=== PATIENT | female | born 1960 ===

== ENCOUNTER → 2018-12-18 10:39 | Outpatient (CLI) | payer OTHER, SELFPAY ==
[2018-12-18 12:25] LABS: T4 Total Thyroxine 6.29 ug/dL (5.5-11.0)
[2018-12-18 12:39] LABS: Thyroid Stimulating Hormone 1.65 uIU/mL (0.47-4.68)
[2018-12-20 20:18] LABS: Triiodothyronine T3 Total 115 ng/dL (76-181)
== END ==
DX: E66.9 Obesity, unspecified (principal)
CPT/HCPCS: 36415; 84436; 84443; 84480

== ENCOUNTER → 2020-07-08 09:57 | Outpatient (CLI) | payer OTHER, SELFPAY ==
[2020-07-08 11:57] LABS: Cholesterol 199 mg/dL (140-199); HDL Cholesterol 77 mg/dL (40-60); LDL Cholesterol Calculated 103 mg/dL (<100); Triglycerides 93 mg/dL (35-150)
== END ==
PROVIDERS: PCP Student in an Organized Health Care Education/Training Program; Referring Provider Student in an Organized Health Care Education/Training Program; Visit Provider Student in an Organized Health Care Education/Training Program
DX: Z13.220 Encounter for screening for lipoid disorders (principal)
CPT/HCPCS: 36415; 80061

== ENCOUNTER → 2021-12-08 14:24 | Outpatient (CLI) | payer OTHER, SELFPAY ==
[2021-12-08 14:56] LABS: COVID19 -Nasal RAPID Negative (Negative)
== END ==
PROVIDERS: PCP Student in an Organized Health Care Education/Training Program; Visit Provider Family Medicine Sleep Medicine
DX: Z20.822 Contact with and (suspected) exposure to COVID-19 (principal)
CPT/HCPCS: 87635; C9803

== ENCOUNTER 2021-12-12 15:52 | Observation (INO) | payer OTHER, SELFPAY ==
[2021-11-29 08:49] VITALS: BMI 36.5
[2021-12-11] VITALS (13 sets, daily range): BP systolic 112–158; BP diastolic 61–93; PULSE 50–82; RESP 10–16; TEMP 36–36.9; O2SAT 94–100; BMI 36.5
[2021-12-11] MEDS: LACTATED RINGERS 1,000 ML 42 ML IV ×2 (13:14→16:01)
--- NOTE | 2021-12-11 13:19 | PM.PREOP ---
Pre-operative Note COVID-19 COVID-19 status: Negative Result date/Date tested (Pos, Neg/Pending): 12/10/21 Criteria for continued procedure: Expected advancement of disease process, Possibility delay results in more complex future surgery or treatment, Increased loss of function, Continuing or worsening of significant or severe pain, Deterioration of the patient's condition or overall health and Delay expected to result in less-positive ultimate med/surg outcome Interval Note History & Physical reviewed/Exam performed by Physician: Yes Changes to H&P: No
[2021-12-11] MEDS: CEFAZOLIN 2 GM/20 ML SYRINGE IV ×2 (14:14→21:42)
--- NOTE | 2021-12-11 14:41 | SUR.OPER ---
Prone on spine table, head in foam head support, padded chest and pelvic supports, gel pad at knees, lower legs supported by pillows; nipples, genitalia and toes free of pressure, arms secured on foam padded arm boards at <90 degrees abduction. Tape over blanket at thigh secured to table. tape from top of buttocks bilateral to base of table to provide traction.
[2021-12-11] MEDS: BUPIVACAINE LIPOSOME 266 MG/20 ML VIAL INJ (15:14)
[2021-12-11] MEDS: BUPIVACAINE 0.25% (PF) 30 ML, EPINEPHrine 0.3 MG INJ (15:14)
[2021-12-11] MEDS: ACETAMINOPHEN IV 1,000 MG/100 ML VIAL 400 MG IV (16:02)
--- NOTE | 2021-12-11 16:53 | P.OP_ITS ---
Operative Date/Time/Diagnoses Date of procedure: 12/11/21 Time of procedure: 13:45 Pre-op diagnosis: 1. L3-4 spinal stenosis with neurogenic claudication 2. L3-4 spondylolisthesis Post-op diagnosis: same Procedure & Clinicians Procedure: 1. L3-4 Postero-lateral and posterior interbody fusion 2. L3-4 interbody cage placement. 3. L3-4 decompressive laminectomy with bilateral facetecomies 4. L3-4 Posterior non-segmental instrumentation 5. [place] of bone marrow from iliac crest 6. Utilization of microsurgical technique and operating microscope Same procedure as scheduled: Yes Indications: Patient has been having chronic back pain and worsening lumbar radiculopathy. Patient failed multiple conservative management with worsening pain weakness and numbness in her lower extremity. Patient has been having difficulty performing activity of daily living. After discussing risks benefits of treatment options, patient elected proceed with surgery. Surgeon: Jacob Montiel Adobe Architect: Aniyah Lea Click Yes if Unassisted: No Anesthesia Type: General Operative Notes Closure Type: primary Specimen(s): none sent Prosthetic devices, grafts, tissues, transplants, or devices: Globus revolve screws, Rise cage Estimated Blood Loss (mL): 50 Blood products transfused: none Procedure in detail: Patient was seen in the preoperative area. Risks and benefits of the surgery was discussed with the patient. Informed consent was obtained from the patient and placed in the chart. Surgical site was marked. Patient was taken to the operative room. General anesthesia was administered. Prophylactic antibiotic was given to the patient less than 30 min before the incision was made. Patient was placed into a prone position on the Carroll table. Patient's back was then prepped and draped in the sterile fashion. Time-out was performed at this time. Using AP and lateral C-arm imaging the interval between L3-4 was identified and marked on patient's back. A 2 inch incision 2 in from midline was made on the left side first. The fascia was incised in line with skin incision. Globus MARS retractors was placed inside the incision and docked onto the L3-4 lamina. Using microsurgical technique and operating microscope, a L3 laminectomy and L3- 4 facetectomy was performed using a Kerrison rongeur. Patient was found to have severe central stenosis along with severe foramen stenosis bilaterally. After the decompression was completed including laminectomy facetectomies, the L3-4 level was found to be grossly unstable and needed a fusion procedure at the same time. The disc space at L3-4 was identified. And a total diskectomy was p erformed at L3-4 level. The endplates were decorticated using a rasp and shaver. The total diskectomy and decortication was performed at L3-4 level in order to to accomplish a L3-4 fusion. The local bone from the laminectomy and facetectomy was saved for local bone grafting. After the total diskectomy and decortication was completed, Trifecta bone graft material was combined with local bone that was harvested earlier. At this time, a separate skin is incision was made over the iliac crest. A Jamshidi needle was inserted into the iliac crest through a separate skin incision. 5 cc of bone marrow aspiration was obtained through the separate skin incision using a Jamshidi needle from the iliac crest. The bone marrow aspiration was combined with local bone and the Trifecta bone grafting material. The bone grafting material was placed into the L3-4 interbody space along with a expandable cage. The cage was expanded to its maximum height using the torque limiting screwdriver. At this time a mirror image incision was made on the right side. The fascia was incised in line with the skin incision. Globus MARS retractor was inserted and docked onto the L3-4 posterolateral gutter. Using the power drill, posterior- lateral decortication was performed at L3-4 level until bleeding cortical bone was identified. The remaining bone grafting material was placed into the L3-4 posterior lateral gutter he order to accomplish posterolateral fusion at the L3- 4 level. Using the double C-arm technique, pedicle screws were placed into the L3 and L4 pedicles bilaterally. This was done by placing the Jamshidi needle into the pedicles, then placing the guidewires over the Jamshidi needle, and finally placing the cannulated screws over the guidewires bilaterally. After the pedicle screws were placed, 2 titanium rods was locked into the heads of the pedicle screws using locking caps and torque limiting screwdriver. After all the hardware was placed, and confirmed with AP and lateral C-arm imaging, the wound was then irrigated with sterile normal saline and packed with Ray-Lucy gauze for 3 min to accomplish hemostasis. After the gauze was removed the deep fascia was closed with #1 Vicryl suture. The subcutaneous layer was closed with 2-0 Vicryl. The skin was closed with skin willi. Patient tolerated the procedure well. There were no complications. Neuro monitoring was performed throughout the entire procedure. Patient neuro monitoring signal was stable throughout entire procedure. Complications: none Post-operative Condition: stable Disposition: PACU Plan for aftercare: Admit to inpatient hospital
--- NOTE | 2021-12-11 16:54 | DI.RAD.S_ITS ---
PROCEDURE: XR LUMBAR SPINE 2-3V INDICATIONS: L3-4 TLIF TECHNIQUE: 3 views of the lumbar spine were acquired. COMPARISON: None. FINDINGS: Bones: Postsurgical changes compatible L3-L4 TLIF. Orthopedic hardware is in expected position. Orthopedic hardware is intact. Soft tissues: Overlying bowel gas pattern is normal. No suspicious soft tissue calcifications. IMPRESSION: Expected postsurgical change for L3-L4 TLIF. Dictated by: Lennie Mckeon MD, PhD on 12/11/2021 at 17:00 Approved by: Lennie Mckeon MD, PhD on 12/11/2021 at 17:00
[2021-12-11] MEDS: fentaNYL 100 MCG/2 ML INJ IV ×2 (17:11→17:19)
[2021-12-11] MEDS: HYDROMORPHONE 2 MG INJ IV ×6 (17:12→17:40)
[2021-12-11] MEDS: OXYCODONE IR 5 MG TABLET PO (17:26)
--- NOTE | 2021-12-11 17:41 | SUR.PHASEI ---
Addendum entered by Lesly Mcwilliams R.N. 12/11/21 18:44: experell band on left wrist of patient on transfer into room 206.Rn made aware. Addendum entered by Lesly Mcwilliams R.N. 12/11/21 18:35: 1815-vss. more awake and comfortable. pain tolerable now. states able to relax now. denied any numb/tingling in feet. pain now relaxed/tolerable in thighs and centralized in surgical area. report to RN on floor By phone. csm ble w/out deficits. strength equal and improved in strength. dressing cdi to back. at bedside. 1824-Meets discharge criteria for transfer. to room via bed with 2 bags of belongings. in good spirits. handoff in room with RN. Original Note: 12/11/21-1712 Patient awakening, moan/crying/tearful over back pain . titrated pain medication and monitoring effect. vss. states back pain radiating down legs and behind knees. 1735-Rates pain now at 8/10 and localized now to lumbar back. vss. looks peaceful. resting with eyes closed. 1745-states pain now down in upper legs bilaterally and states improved some more.
[2021-12-11] MEDS: SODIUM CHLORIDE 0.9% 1,000 ML 100 ML IV (18:45)
[2021-12-11] MEDS: HYDROMORPHONE 0.5 MG INJ IV ×2 (18:45→21:40)
--- NOTE | 2021-12-11 19:36 | PC.NURSE ---
Patient received from PACU to room 205 approx. 1830, and settled by float nurse Tami. MILLIGAN. Dressing to back CDI. Moving all extremities. MOnitor for void post surgery. Call light within reach.
[2021-12-11] MEDS: SENNOSIDES 8.6 MG TABLET 17.2 MG PO (20:30)
[2021-12-11] MEDS: DOCUSATE 100 MG CAPSULE PO (20:30)
[2021-12-11] MEDS: OXYCODONE IR 5 MG TABLET 10 MG PO (22:17)
--- NOTE | 2021-12-11 22:41 | PC.NURSE ---
Patient is alert and oriented. Breath sounds CTA with RA sat of 98%. HRR. Denies nausea. BT hypoactive and denies flatus as yet. Assisted to reposition in bed and ice pack placed earlier for pain but pain did increase to 8/10 and was medicated with Dilaudid and now with oxycodone for better pain management. Up to BSC with 2 assists and did well with log rolling and reminders not to twise or bed. Dressing to back with small amount red drainage at right lower corner. CMS is intact. Wearing bilateral foot SCD's. Fall risk score is high and bed alarm is activated.
[2021-12-12 00:35] VITALS: BP 119/72; PULSE 67; RESP 16; TEMP 36.7; O2SAT 99
[2021-12-12] MEDS: OXYCODONE IR 5 MG TABLET 10 MG PO ×5 (01:21→18:59)
[2021-12-12] MEDS: hydrOXYzine pamoate 25 MG CAPSULE PO ×3 (03:33→15:37)
[2021-12-12] MEDS: ACETAMINOPHEN 325 MG TABLET 650 MG PO (03:33)
[2021-12-12 03:42] VITALS: BP 123/58; PULSE 55; RESP 16; TEMP 37.2; O2SAT 96
[2021-12-12] MEDS: HYDROMORPHONE 0.5 MG INJ IV ×3 (04:26→20:13)
[2021-12-12] MEDS: SODIUM CHLORIDE 0.9% 1,000 ML 100 ML IV (04:30)
[2021-12-12] MEDS: CEFAZOLIN 2 GM/20 ML SYRINGE IV (06:10)
--- NOTE | 2021-12-12 07:34 | P.PN_ITS ---
Subjective Subjective Date Patient Seen: 12/12/21 Time Patient Seen: 07:35 Interval history: Pain is moderate to severe. Denies fever or chills. No nausea or vomiting. Exam Vital Signs (past 8 hours): - 12/12/21 00:35 12/12/21 03:42 Temperature 98.0 F 98.9 F Pulse Rate 67 55 L Respiratory Rate 16 16 Blood Pressure 119/72 123/58 L Pulse Oximetry 99 96 Oxygen Delivery Method Room Air Oxygen Flow Rate 0 Narrative Exam Narrative: 61-year-old female resting comfortably in bed in no apparent distress. Dressing is Clean, dry, intact.. Motor functions intact bilateral lower extremities. Sensation grossly intact to light touch left lower extremity. Sensation diminished right lower extremity to light touch which was present prior to surgery. Const General: cooperative Nutritional Appearance: average body habitus Orientation: alert [facility] Medical History Carpal tunnel syndrome (~2004) Easy bruisability Osteoarthritis Seasonal allergies Surgical History Anesthesia Carpal tunnel syndrome on right (~08/2015) History of colonoscopy History of hip replacement (~08/2015) History of tubal ligation (~02/1989) Hx of arthroscopy of right knee (09/2019) Plantar fasciitis Family History Grandmother Cancer Hypertension Social History household members: spouse Smoking Status: Never smoker second hand exposure: No alcohol intake: current substance use type: does not use Assessment & Plan Post-op Postoperative Procedures: Procedures Operation Date: 12/11/21 14:15 Actual Procedure Side Surgeon p L3-4 TLIF Jacob Montiel MD Postoperative day: 1 Postoperative status: marginal pain control Postoperative status narrative: Stable status post L3 through L4 posterior lateral and posterior interbody fusion Postoperative plan narrative: Mobilize with physical therapy, limit bending, twisting, lifting Multimodal pain management Discharge 1-2 days Quality VTE Deep Vein Thrombosis/Pulmonary Embolism Present on Admission: No
[2021-12-12 08:37] VITALS: BP 102/49; PULSE 54; RESP 16; TEMP 36.6; O2SAT 96
[2021-12-12] MEDS: DOCUSATE 100 MG CAPSULE PO ×2 (09:20→20:08)
--- NOTE | 2021-12-12 09:30 | OT.IP.EVAL ---
Current Diagnoses Spondylolisthesis, lumbar region (12/11/21) Spinal stenosis, lumbar region with neurogenic claudication (12/11/21) Surgery Performed Operation Date: 12/11/21 14:15 Actual Procedures p L3-4 TLIF - Jacob Montiel MD Past Medical History (Last Reviewed 12/12/21 @ 07:36 by Mayo Owens PA-C) Carpal tunnel syndrome (~2004) Easy bruisability History of colonoscopy History of hip replacement (~08/2015) History of tubal ligation (~02/1989) Hx of arthroscopy of right knee (09/2019) Osteoarthritis Seasonal allergies Surgical History (Last Reviewed 12/12/21 @ 07:36 by Mayo Owens PA-C) Anesthesia Carpal tunnel syndrome on right (~08/2015) History of colonoscopy History of hip replacement (~08/2015) History of tubal ligation (~02/1989) Hx of arthroscopy of right knee (09/2019) Plantar fasciitis Occupational Therapy Inpatient Evaluation/Re-Eval M1 PT/OT-IP Prior Functional Status Start: 12/12/21 11:52 Freq: NEEDED Status: Active Protocol: Document 12/12/21 09:30 [facility] (Rec: 12/12/21 12:09 [facility] [id number]) Medical Review Prior Functional Status Medical History Reviewed Yes Communication Independent Mobility and Gait Per pt, she did not use a device to walk with prior. Activities of Daily Living and IADL's Pt states needing increased time to do her ADl and IADl needs. Social History Household Members spouse Living Arrangements House Number of Floors (Floors) One Floor Number of Stairs To Enter/Railing? 4 steps with left rail going into the house. Home Environment Standard Height Toilet,Walk in Shower Additional Social History Comment Pt's will be at home to assist with her needs. M2 OT-IP Current Condition Start: 12/12/21 11:52 Freq: Status: Active Protocol: Document 12/12/21 09:30 [facility] (Rec: 12/12/21 12:09 [facility] [id number]) Occupational Therapy Current Condition Current Condition Evaluation Date 12/12/21 Treatment Diagnosis S/p L3-4 TLIF Diagnosis Onset Date 12/11/21 Post Operative Precautions Lumbar Precautions Log Roll,No Twisting,Limit Bending,Lifting Restriction of 10 lbs,Gait Belt above Incisional Area M3 OT- IP Subjective and Pain Start: 12/12/21 11:52 Freq: Status: Active Protocol: Document 12/12/21 09:30 [facility] (Rec: 12/12/21 12:09 [facility] [id number]) OT- Subjective Occupational Therapy Visit Type Type Initial Evaluation Visit Start Time 09:30 Visit Stop Time 10:08 Total Visit Minutes 38 Occupational Therapy Visit Comments Patient Comments Pt agreed to get up and pt's in the room. Patient/Caregiver Goals TO go home. OT Pain Assessment Pain When Pain Assessed At Rest Pain Present Pain Present Pain Reported Location pelvis/hips Intensity 5 Scale Used Numeric (0 - 10) M4 OT- IP ADL's Start: 12/12/21 11:52 Freq: Status: Active Protocol: Document 12/12/21 09:30 [facility] (Rec: 12/12/21 12:09 [facility] [id number]) OT [id number]-[id number] General Evaluation Self-Feeding Ability Independent OT ADL-Grooming Comments OT Grooming Comments Not performed. OT ADL-Oral Care Comments Oral Care Comments Able to educated pt best to spit into a cup or hinge at her hips to spit into the sink during oral care needs. OT ADL-Dressing General Eval Lower Body Dressing Ability Maximum Assistance Comments OT Dressing Comments Able to practice use of chief radiation therapist and sock aid for LB dressing needs. Per pt's to assist with her needs. OT ADL-Toileting Comments OT Toileting Comments Pt not having to go. Suggested to wear pads at night so not having to hurry to the bathroom. Pt tends to wipe from the front after a bowel movement and work with pt tomorrow ir able to do so while following her back precautions. OT ADL-Bathing Comments OT Bathing Comments Pt states shower too small to get a shower chair in there but may be able to get the FWW in there. Pt also has a tub/ shower and able to show pt and pictures of tub bench if needed. To do caregiver training with for dressing/showering needs tomorrow. M5 OT- IP IADL's Start: 12/12/21 11:52 Freq: Status: Active Protocol: Document 12/12/21 09:30 [facility] (Rec: 12/12/21 12:09 [facility] [id number]) OT-Instrumental Activities of Daily Living Medication Management Medication Management Comments Pt's stats will be home to assist with all pt's needs at this time. Money Management Money Management Comments Pt's stats will be home to assist with all pt's needs at this time. Meal Preparation Meal Preparation Caregiver Provides Assist Train Driver Train Driver Caregiver Provides Assist M6 OT- IP Functional Cognition Start: 12/12/21 11:52 Freq: Status: Active Protocol: Document 12/12/21 09:30 [facility] (Rec: 12/12/21 12:09 [facility] [id number]) Cognitive Factors Limiting Selfcare Function Cognitive Ability Level of Alertness Alert Patient Orientation Name,Place,Situation Attention Span Ability Capable of Focused Attention, Capable of Sustained Attention Ability to Follow Commands Able to Follow One Step Commands Safety Awareness Underestimates Need for Assistance Cognitive Comments Cognitive Assessment Comments Pt is a bit impulsive and needing cues to slow down at this time. Pt educated to call for assistance via call light . OT- Vision and Hearing OT- Hearing Assessment OT- Hearing Assessment WFL OT- Vision Assessment Visual Acuity Glasses All The Time M7 OT- IP Mobility and Balance Start: 12/12/21 11:52 Freq: Status: Active Protocol: Document 12/12/21 09:30 [facility] (Rec: 12/12/21 12:09 [facility] [id number]) OT- Bed Mobility Assessment Rolling Type of Rolling Roll to Right Level of Assistance Standby Assistance,Bedrails Supine to Sit Supine to Sit Assist Contact Guard Assistance OT-Transfer Assessment Sit to and From Stand Sit to and from Stand Contact Guard Assistance Transfers Transfer Ability Contact Guard Assistance Technique Transfer Destination Bed,Chair Transfer Technique Stand Step Pivot Devices Transfer Assistive Devices Gait Belt,Front Wheeled Walker Comments Mobility Comments Pt BP supine 117/67, sitting 139/83 and after transfer 112/ 60. Pt CGA for needs and mainly initial education for log rolling and to push up from surfaces standing from. OT- Balance Assessment Sitting Balance and Reactions Static Sitting Balance Ability Good Dynamic Sitting Balance Ability Fair Standing Balance and Reactions Static Standing Balance Ability Fair M8 OT- IP Objective Assessments Start: 12/12/21 11:52 Freq: Status: Active Protocol: Document 12/12/21 09:30 [facility] (Rec: 12/12/21 12:09 [facility] [id number]) OT-Muscle Tone Assessment Muscle Tone WNL Yes M9 OT- IP Assessment and Plan Start: 12/12/21 11:52 Freq: Status: Active Protocol: Document 12/12/21 09:30 [facility] (Rec: 12/12/21 12:09 [facility] [id number]) OT Summary Assessment and Plan Potential Rehabilitation Potential Excellent Analytic Complexity at Evaluation Low Summary OT Impairments Pain,Functional Cognition, Functional Mobility,Grooming, Dressing,Toileting,Bathing, Toilet Transfers,Shower Transfers Progress Towards Goals Progressing Toward Goals Assessment Summary Pt MIN complexity and main barriers are steps, needing reminders to slow down and incorporate her back precautions during all ADL and mobility needs. Pt to look into getting a FWW , chief radiation therapist, and possibly shower chair/tub bench. Pt has a supportive who is able to assist pt for all her needs. Pt's to come for caregiver training tomorrow at 10AM for showering /dressing needs. Goals Grooming Goal Independent Dressing Goal Independent Toileting Goal Independent Bathing Goal Independent Toilet Transfer Goal Independent Shower Transfer Goal Independent Patient/Caregiver Education Goal Caregiver Independent Assisting Patient Days to Meet Goals 5 Frequency of Treatment Frequency Of Treatment Once a Day Treatment Plan OT Treatment Plan ADL Training,Functional Cognition Training,Functional Mobility,Patient/Family Education,Discharge Planning Other Treatment Recommendations and Next caregiver training Treatment Focus Discharge Recommendations OT Discharge Recommendations Home with Assistance Home Equipment Needs FWW, shower chair/tubbench Transportation Needs at Discharge Private Vehicle
--- NOTE | 2021-12-12 10:35 | PT.IIE ---
Current Diagnoses Spondylolisthesis, lumbar region (12/11/21) Spinal stenosis, lumbar region with neurogenic claudication (12/11/21) Surgery Performed Operation Date: 12/11/21 14:15 Actual Procedures p L3-4 TLIF - Jacob Montiel MD Surgical History (Last Reviewed 12/12/21 @ 07:36 by Mayo Owens PA-C) Anesthesia Carpal tunnel syndrome on right (~08/2015) Plantar fasciitis Medical History (Last Reviewed 12/12/21 @ 07:36 by Mayo Owens PA-C) Carpal tunnel syndrome (~2004) Easy bruisability Osteoarthritis Seasonal allergies Physical Therapy Inpatient Evaluation/Re-Eval M1 PT/OT-IP Prior Functional Status Start: 12/12/21 12:28 Freq: NEEDED Status: Active Protocol: Document 12/12/21 10:35 AB (Rec: 12/12/21 12:51 AB [id number]) Medical Review Prior Functional Status Medical History Reviewed Yes Communication able to make needs known Mobility and Gait pt stated that she is modified independent with all mobilities and ambulation without AD Social History Household Members spouse Living Arrangements House Number of Floors (Floors) One Floor Number of Stairs To Enter/Railing? 5 steps R rail ascending entering the front 5 steps L rail ascending entering the back Home Environment Standard Height Toilet,Walk in Shower Additional Social History Comment has 2 walking sticks spouse stated that he will get a FWW for pt M2 PT-IP Current Condition Start: 12/12/21 12:28 Freq: NEEDED Status: Active Protocol: Document 12/12/21 10:35 AB (Rec: 12/12/21 12:51 AB [id number]) Physical Therapy Current Condition Current Condition Evaluation Date 12/12/21 Treatment Diagnosis s/p L3-4 fusion; difficulty in walking Onset Date 12/11/21 M3 PT-IP Subjective Start: 12/12/21 12:28 Freq: NEEDED Status: Active Protocol: Document 12/12/21 10:35 AB (Rec: 12/12/21 12:51 AB [email or web address]) Subjective Physical Therapy Visit Type Type Initial Evaluation Visit Start Time 10:35 Visit Stop Time 11:10 Total Visit Minutes 35 Number of CATERING SERVER Visits 0 Physical Therapy Visit Comments Patient Comments agreeable to do PT Therapy Pain Assessment Pain When Pain Assessed At Rest Pain Present Pain Present Pain Reported Location Back Scale Used increases to >10 with mobility Pain Behaviors Crying Pain Management Techniques Distraction,Modification of Treatment,Re-positioning, Timing of Activity with Medications M4 PT-IP Mobility and Gait Start: 12/12/21 12:28 Freq: NEEDED Status: Active Protocol: Document 12/12/21 10:35 AB (Rec: 12/12/21 12:51 AB [id number]) PT-Bed Mobility Assessment Supine to Sit Supine to Sit Contact Guard Assistance Sit to Supine Sit to Supine Contact Guard Assistance PT-Transfer Assessment Sit to and From Stand Sit to and from Stand Minimal Assistance,1 Person Assistance,Use of Upper Extremities Equipment Transfer Assistive Device Gait Belt,Front Wheeled Walker Orthotic/Prosthetic Devices or Brace: No Comments Mobility Comments pt able to recal her precautions. agreed to do PT but wants to go back to bed afterwards. completed log roll supine to sit CGA. able to sit on EOB SBA. completed sit to stand min A and cues and ambulated in room ~ 15 ft using FWW min A and cues. pt c/o increase back pain with > 10/10. completed log roll sit to supine CGA. positioned in bed. call light and table placed within reach. caregiver training set up with spouse. spouse will be in @ 10 am 12/13 for caregiver training Gait Assessment Gait Gait Assistance Required: Minimum Assistance Distance (Feet) 15 Able to Maintain Weight Bearing Status Yes During Gait Assistive Devices Assistive Device Gait Belt,Front Wheeled Walker Orthotic/Prosthetic Devices or Brace: No Gait Deviations General Gait Pattern Decreased Stride Length, Decreased Feet Clearance Factors Limiting Gait Function Factors Limiting Gait Function Decreased Activity Tolerance, Decreased Sensation,Decreased Strength,Limited Range of Motion,Pain,Poor Balance,Poor Safety Awareness PT-Balance Assessment Sitting Balance and Reactions Static Sitting Balance Ability Good Dynamic Sitting Balance Ability Good Standing Balance and Reactions Static Standing Balance Ability Fair Dynamic Standing Balance Ability Fair Device Used FWW M5 PT-IP Objective Assessments Start: 12/12/21 12:28 Freq: NEEDED Status: Active Protocol: Document 12/12/21 10:35 AB (Rec: 12/12/21 12:51 AB [id number]) Orientation Orientation/Cognition Level of Alertness Alert Orientation Name Language Function Ability No Deficits Noted Safety Awareness Understands Safety Issues Memory Description No Deficits Noted Gross Range of Motion Lower Extremity ROM Assessment Within Functional Limits Strength Lower Extremity Strength Assessment Bilaterally Impaired Hip R: 4-/5 L: 3+/5 Knee R: 3+/5 L 4-/5 Sensation Assessment Sensation Gross Sensation Right LE Impaired,Left LE Impaired Comments Sensation Comments numbness on B feet Muscle Tone Muscle Tone WNL Yes M6 PT-IP Treatment Start: 12/12/21 12:28 Freq: NEEDED Status: Active Protocol: Document 12/12/21 10:35 AB (Rec: 12/12/21 12:51 AB [id number]) Physical Therapy Treatment Education Education Provided Precautions,Weight Bearing Status,Safety M7 PT-IP Assessment and Plan Start: 12/12/21 12:28 Freq: NEEDED Status: Active Protocol: Document 12/12/21 10:35 AB (Rec: 12/12/21 12:51 AB [id number]) PT Summary Assessment and Plan Potential Rehabilitation Potential Fair Status of Condition at Evaluation Evolving Summary Impairments Pain,ROM,Strength,Balance, Coordination,Sensation,Tone, Cognition,Bed Mobility, Transfers,Gait,Activity Tolerance Assessment Summary pt requiring min A with mobility using FWW but unable to tolerate much activity with c/o increase back pain to >10 /10 with mobility. caregiver training set up for tomorrow at ~ 10 am. will continue to assess progress. Goals Bed Mobility Goal Standby Assistance Transfer Goal Standby Assistance,Front Wheeled Walker Gait Goal Standby Assistance,Front Wheel Walker Gait Distance 150 Other Goals up/down 5 steps 1 rail SBA Days to Meet Goals 5 Frequency of Treatment Frequency Of Treatment Twice a Day Treatment Plan Physical Therapy Treatment Plan Bed Mobility Training,Transfer Training,Gait Training, Therapeutic Exercise,Balance Retraining,Post Op Education, Discharge Planning,Hot or Cold Pack,Neuromuscular Re-ed, Coordination Retraining,Manual Therapy Precautions Lumbar Precautions Log Roll,No Twisting,Limit Bending,Lifting Restriction of 10 lbs,Gait Belt above Incisional Area Recommendations To Nursing Amount of Assist Needed 1 Person Assist Discharge Recommendations PT Discharge Recommendations Home with 20/05 Assist Available,Home Health Equipment Needed for Home Before FWW Discharge Transportation Needs at Discharge Private Vehicle
[2021-12-12 11:29] VITALS: BP 114/55; PULSE 59; RESP 14; TEMP 36.2; O2SAT 98
--- NOTE | 2021-12-12 14:57 | CM.DANOTE ---
Patient is a 61 yo female who was admitted on 12/11/21 for TLIF. Pt has L&I for insurance and her PCP is Dr. Travis Marquez. EMR was reviewed. Per Ortho , pt tolerated procedure well and will work more with PT/OT with likely d/c home tomorrow if stable. Per PT/OT, recommending safe d/c home with spouse assist and HH. CG training scheduled for tomorrow at 1000 with spouse prior to d/c and spouse getting a FWW. 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 Pt is active and independent at baseline but has been limited since injuring her back at work and is under her L&I from work. Pt states that she loves her job but is ready to retire and move near her son and they have already packed up their house and bought a new house in [place] but do not plan to move until she is healed from her planned surgery. Pt states spouse is available for assist at d/c and will buy a walker today for discharge tomorrow as L&I still hasn't approved the walker script from a month ago. Pt denies any hx of HH or SNF and feels HH would be beneficial but doesn't think HH agency likely comes that [place] to [employer] but agreeable with SW calling the 3 local HH agencies to confirm. Pt is agreeable with d/c to home with spouse tomorrow even if HH not available. SW called [facility], [facility], and [facility] and currently none of them go past [place] at this time due to staffing and county lines. Plan: SW to follow for further PT and CG training tomorrow at 1000 to confirm safe d/c home with spouse and to update pt that HH is not available at d/c due to her home location. ELENO Robledo Discharge Planning/Care Management CM Discharge Assessment Start: 12/12/21 14:50 Freq: Status: Active Protocol: Document 12/12/21 14:50 BF (Rec: 12/12/21 14:57 BF [id number]) Discharge Planning Assessment Assigned Hospital Ward Clerk ELENO Wise DPOA/Assigned Designee Name spouse Donte Contact Information [phone] Advance Directives? Yes Advance Directives on File No History Provided By Patient,Medical Record Has Patient been admitted in last 30 No days? Prior Living Arrangements House Household Members spouse Type of transporation used prior to Drives own vehicle admit Independent with ADL's Yes Is patient alert and oriented? Yes Caregiver for Another No Community Services used prior to Physical Therapy admission: Patient/Family Preference Home with Home Health Comment No HH agency covers pt's home [place] [facility] Barriers to Discharge No Discharge Plan Home Community Services Physical Therapy Transportation Arrangement Spouse will provide transport home at d/c Referrals Initiated None needed If patient plan is home with home health No: No HH agency covers : Has signed face to face form been [facility] completed? Whiteboard Updated in Patient Room with Yes name and ext. # of Hospital Ward Clerk Review Status In Process Please Provide Date Initial DC 12/12/21 Assessment Was Performed Next Review Type Continued Stay Review Pre-Anesthesia Assessment Start: 11/29/21 08:49 Freq: Status: Complete Protocol: Document 11/29/21 08:49 CAB (Rec: 11/29/21 09:28 CAB [id number]) Pre-Anesthesia Assessment Patient Information Reviewed Via Phone Assessment Assessment Completed With Patient H&P Completed Within 30 Days Yes Diagnostic Results BMP/CMP,CBC,EKG Comment Outside labs scanned, COVID screen @ [facility] 12/08/21 Primary Care Provider Travis Marquez Seen Specialist in Last 12 Months Yes Specialist Seen Orthopedist Primary Language Yakut Prototype Carpenter Required No Height 172.72 cm Weight 108.862 kg Body Mass Index (BMI) 36.5 Hearing Ability Normal Visual Assist Glasses Dentition Type Teeth, Natural Present,Partial - Upper Barriers to Learning None Hx Anesthesia Reactions Yes: Difficulty breathing when I came out of tubal Hx Family Anesthesia Reaction No Hx Malignant Hyperthermia No Hx Blood Transfusions No Anesthesia Review Requested No alcohol intake current Alcohol Intake Frequency Other: Occasional Smoking Status Never smoker Substance Use Type does not use Pain Present Pain Reported Musculoskeletal Symptoms Abnormal Gait,Back Pain, Difficulty Walking,Numbness, Radiating Pain into Limb, Tingling History of Falling (Recent or History of No ) Patient is completely paralyzed or No completely immobile Mental Status Oriented to own ability Is patient on oxygen? No Does patient have AGUILAR/SOB No Hx Sleep Apnea No Currently Taking a Beta Terrie No Hx Chest Pain No Hx SOB No Hx Syncope or Dizziness No Anti-Coagulant Therapy No Has a Drafting Clerk No Cardiac Testing No Hx Pacemaker/ICD No Pacemaker Rep Required? No Diet Type At Home Regular,Vegetarian dysphagia No Gastrointestinal Symptoms Constipation Urinary Catheter Present No Hx Urinary Self Catheterization No Diabetes No Patient No Lactating No Hx Drug Resistant Organism No Presence of External or Internal Medical Yes: Left hip prosthesis Devices Have you had any close contact with No someone diagnosed with COVID-19? Received a COVID vaccine? Yes: J&J one dose Marital Status Lives With spouse Prior Living Arrangements House Number of Floors (Floors) One Floor Support System Spouse Does the Patient Have Assistance After Yes Surgery Patient Discharge Plan Description Return Home Comment Pt not advised on length of stay per surgeon Feels Safe in Current Environment Yes Been Physically Hurt or Threatened By a No Person in Current Environment Do you have thoughts of harming yourself None or others? Are you currently considering suicide? No Do you have a plan to hurt yourself or No Plan others? Do You Have Any Spiritual Beliefs That No May Affect Your HC Choices? Do You Have Any Cultural Practices That No May Affect Your HC Choices? Comment Islam Who Can We Speak to About Patient's Care Family, friends Identifying Code for Release of Patient Declines to issue Information Health Care Proxy/Next of Kin Donte () Health Care Proxy Emergency Contact Name Donte () Emergency Contact Advance Directives? Yes: Unknown whereabouts Advance Directives on File No Power of Credit Department Manager Yes Power of Credit Department Manager Name Donte () Power of Credit Department Manager PAC Instructions Durable medical equipment, Medications to take/avoid, Nasal antibiotic,No ETOH/ petroleum product on skin DOS, NPO,Post-op transportation,Pre -surgical wash,Sensory aids, Sturdy shoes/comfortable clothes,Do not bring valuables and remove jewelry
--- NOTE | 2021-12-12 15:39 | PT.IPTN ---
Current Diagnoses Spondylolisthesis, lumbar region (12/11/21) Spinal stenosis, lumbar region with neurogenic claudication (12/11/21) Surgery Performed Operation Date: 12/11/21 14:15 Actual Procedures p L3-4 TLIF - Jacob Montiel MD Physical Therapy Treatment Note M2 PT-IP Current Condition Start: 12/12/21 12:28 Freq: NEEDED Status: Active Protocol: Document 12/12/21 10:35 AB (Rec: 12/12/21 12:51 AB [id number]) Physical Therapy Current Condition Current Condition Evaluation Date 12/12/21 Treatment Diagnosis s/p L3-4 fusion; difficulty in walking Onset Date 12/11/21 M3 PT-IP Subjective Start: 12/12/21 12:28 Freq: NEEDED Status: Active Protocol: Document 12/12/21 15:16 KS (Rec: 12/12/21 16:40 KS [id number]) Subjective Physical Therapy Visit Type Type Treatment Note Visit Start Time 15:16 Visit Stop Time 15:39 Total Visit Minutes 23 Number of FIRE EQUIPMENT INSPECTOR Visits 1 Physical Therapy Visit Comments Patient Comments agreeable to do PT Therapy Pain Assessment Pain When Pain Assessed At Rest Pain Present Pain Present Pain Reported M4 PT-IP Mobility and Gait Start: 12/12/21 12:28 Freq: NEEDED Status: Active Protocol: Document 12/12/21 15:16 KS (Rec: 12/12/21 16:40 KS [id number]) PT-Bed Mobility Assessment Rolling Type of Rolling Log Rolling,Roll to Right Level of Assist Standby Assistance Supine to Sit Supine to Sit Contact Guard Assistance Sit to Supine Sit to Supine Contact Guard Assistance PT-Transfer Assessment Sit to and From Stand Sit to and from Stand Contact Guard Assistance,1 Person Assistance,Use of Upper Extremities Equipment Transfer Assistive Device Gait Belt,Front Wheeled Walker Orthotic/Prosthetic Devices or Brace: No Transfers Transfer Destination Bed Transfer Technique Pt ambulated w/ FWW Transfer Ability Level of Assist Contact Guard Assistance Comments Mobility Comments Pt in bed upon arrival and reporting feeling much better this PM. Able to recall all spinal precautions. SBA for logroll and CGA for sup<>sit, scooting EOB, and sit<>Stand. Pt then ambulated ~60 ft around room w/ FWW, slowly w/ decreased stride and foot clearance. She returned to bed and performed logroll into bed CGA. Gait Assessment Gait Gait Assistance Required: Contact Guard Assist Distance (Feet) 60 Able to Maintain Weight Bearing Status Yes During Gait Assistive Devices Assistive Device Gait Belt,Front Wheeled Walker Orthotic/Prosthetic Devices or Brace: No Gait Deviations General Gait Pattern Decreased Stride Length, Decreased Feet Clearance Factors Limiting Gait Function Factors Limiting Gait Function Decreased Activity Tolerance, Decreased Sensation,Decreased Strength,Limited Range of Motion,Pain,Poor Balance,Poor Safety Awareness Comments Gait Comments Refer to mobility section for details. Stair Climbing Assessment Comments Stair Climbing Comments Not assessed, 5 to access home . PT-Balance Assessment Sitting Balance and Reactions Static Sitting Balance Ability Good Dynamic Sitting Balance Ability Good Standing Balance and Reactions Static Standing Balance Ability Fair Dynamic Standing Balance Ability Fair Device Used FWW M5 PT-IP Objective Assessments Start: 12/12/21 12:28 Freq: NEEDED Status: Active Protocol: Document 12/12/21 10:35 AB (Rec: 12/12/21 12:51 AB [id number]) Orientation Orientation/Cognition Level of Alertness Alert Orientation Name Language Function Ability No Deficits Noted Safety Awareness Understands Safety Issues Memory Description No Deficits Noted Gross Range of Motion Lower Extremity ROM Assessment Within Functional Limits Strength Lower Extremity Strength Assessment Bilaterally Impaired Hip R: 4-/5 L: 3+/5 Knee R: 3+/5 L 4-/5 Sensation Assessment Sensation Gross Sensation Right LE Impaired,Left LE Impaired Comments Sensation Comments numbness on B feet Muscle Tone Muscle Tone WNL Yes M6 PT-IP Treatment Start: 12/12/21 12:28 Freq: NEEDED Status: Active Protocol: Document 12/12/21 15:16 KS (Rec: 12/12/21 16:40 KS [id number]) Physical Therapy Treatment Education Education Provided Precautions,Weight Bearing Status,Safety M7 PT-IP Assessment and Plan Start: 12/12/21 12:28 Freq: NEEDED Status: Active Protocol: Document 12/12/21 15:16 KS (Rec: 12/12/21 16:40 KS [id number]) PT Summary Assessment and Plan Potential Rehabilitation Potential Fair Status of Condition at Evaluation Evolving Summary Impairments Pain,ROM,Strength,Balance, Coordination,Sensation,Tone, Cognition,Bed Mobility, Transfers,Gait,Activity Tolerance Assessment Summary Pt SBA to CGA for mobility. Good adherence to spinal precautions. Able to ambulate ~60 ft slowly w/ FWW. She will need to complete 5 steps w/ caregiver training prior to d/ c. but anticipate pt to d/c home. Caregiver training scheduled w/ pts for 9 :30 AM tomorrow 12/13. Goals Bed Mobility Goal Standby Assistance Transfer Goal Standby Assistance,Front Wheeled Walker Gait Goal Standby Assistance,Front Wheel Walker Gait Distance 150 Other Goals up/down 5 steps 1 rail SBA Days to Meet Goals 5 Frequency of Treatment Frequency Of Treatment Twice a Day Treatment Plan Physical Therapy Treatment Plan Bed Mobility Training,Transfer Training,Gait Training, Therapeutic Exercise,Balance Retraining,Post Op Education, Discharge Planning,Hot or Cold Pack,Neuromuscular Re-ed, Coordination Retraining,Manual Therapy Precautions Lumbar Precautions Log Roll,No Twisting,Limit Bending,Lifting Restriction of 10 lbs,Gait Belt above Incisional Area Recommendations To Nursing Amount of Assist Needed 1 Person Assist Discharge Recommendations PT Discharge Recommendations Home with 20/05 Assist Available,Home Health Equipment Needed for Home Before FWW Discharge Transportation Needs at Discharge Private Vehicle
[2021-12-12 16:18] VITALS: BP 102/56; PULSE 68; RESP 14; TEMP 36.3; O2SAT 99
[2021-12-12 20:00] VITALS: BP 145/78; PULSE 78; RESP 16; TEMP 36.7; O2SAT 98
[2021-12-12] MEDS: SENNOSIDES 8.6 MG TABLET 17.2 MG PO (20:08)
[2021-12-13] VITALS: BP 106/53; PULSE 74; RESP 16; TEMP 36.6; O2SAT 98
[2021-12-13] MEDS: OXYCODONE IR 5 MG TABLET 10 MG PO ×3 (01:26→08:07)
[2021-12-13] MEDS: HYDROMORPHONE 0.5 MG INJ IV ×2 (01:29→10:37)
[2021-12-13 04:00] VITALS: BP 117/65; PULSE 86; RESP 16; TEMP 36.9; O2SAT 98
[2021-12-13] MEDS: hydrOXYzine pamoate 25 MG CAPSULE PO ×2 (05:38→10:38)
--- NOTE | 2021-12-13 07:50 | PM.DS.1 ---
History of Present Illness History of Present Illness Date Patient Seen: 12/13/21 Time Patient Seen: 07:50 Chief complaint: Back pain Narrative: Pain is been moderate to severe with some aching down the anterior and posterior legs. Denies fever or chills. No nausea or vomiting. Discharge Providers Provider Discharge Date: 12/13/21 Primary care physician: Travis Marquez MD Consults: 12/11/21 18:12 Consult to Occupational Therapy Evaluate & Treat Comment: Physician Instructions: Evaluate and treat Consult to Physical Therapy Evaluate & Treat Comment: Physician Instructions: Evaluate and Treat Discharge provider: Mayo Owens PA-C Summary Hospital Course Discharge Diagnosis: 1. L3-4 spinal stenosis with neurogenic claudication 2. L3-4 spondylolisthesis Hospital Course: 1. L3-4 Postero-lateral and posterior interbody fusion 2. L3-4 interbody cage placement. 3. L3-4 decompressive laminectomy with bilateral facetecomies 4. L3-4 Posterior non-segmental instrumentation 5. [place] of bone marrow from iliac crest 6. Utilization of microsurgical technique and operating microscope Same procedure as scheduled: Yes Indications: Patient has been having chronic back pain and worsening lumbar radiculopathy. Patient failed multiple conservative management with worsening pain weakness and numbness in her lower extremity.? Patient has been having difficulty performing activity of daily living.? After discussing risks benefits of treatment options, patient elected proceed with surgery. Surgeon: Jacob Montiel Drywall Sander: Aniyah Lea Click Yes if Unassisted: No Anesthesia Type: General Operative Notes Closure Type: primary Specimen(s): none sent Prosthetic devices, grafts, tissues, transplants, or devices: Globus revolve screws, Rise cage Estimated Blood Loss (mL): 50 Blood products transfused: none Patient admitted to the hospital for the above-mentioned procedure. Patient taken to the operating room on December 11, 2021. Patient back in her room recovering in stable condition. Patient has had some constant aching pain into the anterior posterior legs since surgery. Patient worked with physical therapy and is stable/safe for home environment. Patient will be discharged home today in stable condition. Status at Discharge Cognitive/behavioral status at discharge: oriented Functional status at discharge: uses cane/walker Overall status at discharge: patient is progressing back to baseline Exam Vital Signs (past 8 hours): - 12/13/21 00:00 12/13/21 04:00 Temperature 97.8 F 98.4 F Pulse Rate 74 86 Respiratory Rate 16 16 Blood Pressure 106/53 L 117/65 Pulse Oximetry 98 98 Oxygen Delivery Method Room Air Oxygen Flow Rate 0 Narrative Exam Narrative: 61-year-old female resting comfortably in bed in no apparent distress. Motor functions intact bilateral lower extremities. Sensation grossly intact to light touch bilateral lower extremities. Const General: cooperative Nutritional Appearance: average body habitus Orientation: alert [facility] Medical History Carpal tunnel syndrome (~2004) Easy bruisability Osteoarthritis Seasonal allergies Surgical History Anesthesia Carpal tunnel syndrome on right (~08/2015) History of colonoscopy History of hip replacement (~08/2015) History of tubal ligation (~02/1989) Hx of arthroscopy of right knee (09/2019) Plantar fasciitis Family History Grandmother Cancer Hypertension Social History household members: spouse Smoking Status: Never smoker second hand exposure: No alcohol intake: current substance use type: does not use Discharge Assessment & Plan Assessment and Plan Assessment: Patient has some pain into the anterior and posterior legs which will start her on 3 day course Decadron. Otherwise patient stable and safe for home environment. Plan of Treatment: Multimodal pain management Decadron 1 tab x3 days Limit bending, twisting, lifting Mobilize with physical therapy Discharge home today in stable condition Discharge Plan Discharge Plan Patient Disposition: Home Discharge orders & Medications Discharge Orders: Discharge (Order); Ordered 12/13/21 Ordered By: Mayo Owens Prescriptions: New acetaminophen 325 mg Tablet 650 mg PO Q6HR PRN (Reason: Pain, Mild (1-3)) Qty: 60 0RF dexamethasone 4 mg Tablet 4 mg PO NOW Qty: 2 0RF docusate sodium 100 mg Capsule 100 mg PO BID Qty: 20 0RF hydromorphone [Dilaudid] 2 mg tablet 2 mg PO Q4H PRN (Reason: pain) Qty: 60 0RF (ENMA) mino Lec See Rx Instructions .Route Qty: 1 0RF Rx Instructions: As directed Follow up/Referrals: Travis Marquez MD [Primary Care Provider] - Jacob Montiel MD [Physician] - (2 weeks) Diet/Activity/Treatments Diet: Diet as Tolerated Activity: Limit bending, twisting, lifting Cold/Heat Therapy: Apply ice to back as needed Skin/Wound/Dressing Care Report to your healthcare provider any signs of infection, such as:: chills, fever, increased pain, unusual drainage and unusual redness Dressing: Keep dressing clean and dry Visit Report/Discharge Packet Instructions: DI for Transforaminal Lumbar Interbody Fusion Stand Alone Forms: Surgery Discharge Discharge Data Primary Care Provider: Travis Marquez Attending Provider: Jacob Montiel Quality VTE Deep Vein Thrombosis/Pulmonary Embolism Present on Admission: No
[2021-12-13 08:00] VITALS: BP 112/58; PULSE 85; RESP 16; TEMP 37.5; O2SAT 95
[2021-12-13] MEDS: DOCUSATE 100 MG CAPSULE PO (08:07)
[2021-12-13] MEDS: dexAMETHasone 4 MG TABLET PO (08:07)
--- NOTE | 2021-12-13 10:25 | PT.IPTN ---
Current Diagnoses Spondylolisthesis, lumbar region (12/12/21) Spinal stenosis, lumbar region with neurogenic claudication (12/12/21) Surgery Performed Operation Date: 12/11/21 14:15 Actual Procedures p L3-4 TLIF - Jacob Montiel MD Physical Therapy Treatment Note M2 PT-IP Current Condition Start: 12/12/21 12:28 Freq: NEEDED Status: Discharge Protocol: Document 12/13/21 09:39 SP (Rec: 12/13/21 17:04 SP [id number]) Physical Therapy Current Condition Current Condition Evaluation Date 12/12/21 Treatment Diagnosis s/p L3-4 fusion; difficulty in walking Onset Date 12/11/21 M3 PT-IP Subjective Start: 12/12/21 12:28 Freq: NEEDED Status: Discharge Protocol: Document 12/13/21 09:39 SP (Rec: 12/13/21 17:04 SP [id number]) Subjective Physical Therapy Visit Type Type Treatment Note Visit Start Time 09:39 Visit Stop Time 10:25 Total Visit Minutes 46 Notes in room, provided gait belt and phyical assist required through tx needed with instruction from WEIGHT REDUCTION SPECIALIST. Number of WEIGHT REDUCTION SPECIALIST Visits 2 Physical Therapy Visit Comments Patient Comments agreeable to do PT Patient Goals return home with to assist her. Therapy Pain Assessment Pain When Pain Assessed At Rest Pain Present Pain Present Pain Reported Location Back Intensity 7 Scale Used low, no quantified Description Aching,Pressure,With Movement Pain Behaviors Facial Grimacing Pain Management Techniques Apply Cold,Distraction, Modification of Treatment,Re- positioning,Timing of Activity with Medications M4 PT-IP Mobility and Gait Start: 12/12/21 12:28 Freq: NEEDED Status: Discharge Protocol: Document 12/13/21 09:39 SP (Rec: 12/13/21 17:04 SP [id number]) PT-Bed Mobility Assessment Rolling Type of Rolling Log Rolling,Roll to Right Level of Assist Standby Assistance Supine to Sit Supine to Sit Contact Guard Assistance, Minimal Assistance,1 Person Assistance Sit to Supine Sit to Supine Contact Guard Assistance, Minimal Assistance,1 Person Assistance Scooting Scooting to Edge of Bed Standby Assistance PT-Transfer Assessment Sit to and From Stand Sit to and from Stand Standby Assistance,Use of Upper Extremities Equipment Transfer Assistive Device Gait Belt,Front Wheeled Walker Orthotic/Prosthetic Devices or Brace: No Transfers Transfer Destination Bed,Chair,Wheelchair Transfer Technique Pt ambulated w/ FWW Transfer Ability Level of Assist Standby Assistance,Contact Guard Assistance,Use of Upper Extremities Comments Mobility Comments Pt seated in chair when arrived. Instructed how don gait belt. Sit>stand SBA w/ FWW. Ambulated to wc in hallway using FWW 15 ft SBA, good positioning during pivot w/ FWW, occasional cues for reaching back slow descent throughout tx for decrease LB recruitment. Wheeled pt to stairs. Completed stair mgt LUE on HR and RUE pressure to R on wall assimulate has at home. 3 stairs x2 sets, cued for his positioning, good carryover, CGA- 5%A required, pt step to patterning ascend/ descend. Pt walked back to room approx 100ft w/c follow, not needed, complete stand>sit on bed>R SL assisted LEs into bed Min A then self LR onto back, discussed use of pillows under LEs for LB support. LR R SBA using had pull from> sit w/ provided trunk righting support with noted good alignment Min A. Scoot to EOB SBA. SPT bed> chair SBA, cued for safety descent to chair decrease LB recruitment and spinal stabilization education support, good cuing carryover. Pt and inquired use of back brace and continued PT when gets home. WEIGHT REDUCTION SPECIALIST discussed pt mobilizing well and important to use abdominal muscle for strengthening but if prefers extra assist speak with phyician and could inquire if can get referral for PT if wish. Suggested transfer handle for care if needed for support sit<> stand, can find online/[facility]/ [employer] sometimes. Gait Assessment Gait Gait Assistance Required: Standby Assistance,Contact Guard Assist Distance (Feet) 100 Able to Maintain Weight Bearing Status Yes During Gait Assistive Devices Assistive Device Gait Belt,Front Wheeled Walker Orthotic/Prosthetic Devices or Brace: No Gait Deviations General Gait Pattern Antalgic,Decreased Stride Length,Decreased Feet Clearance Factors Limiting Gait Function Factors Limiting Gait Function Decreased Activity Tolerance, Decreased Strength,Limited Range of Motion,Pain,Poor Safety Awareness Comments Gait Comments See mobility details. Stair Climbing Assessment Evaluation Level of Assist On Stairs Contact Guard Assistance, Minimal Assistance,1 Person Assistance Devices Stair Climbing Assistive Devices Left Railing Technique/Endurance Stair Climbing Direction Ascend and Descend Stair Climbing Technique Step to Step Number of Steps Climbed 3 Stair Climbing Set # Repetitions (reps) 2 Comments Stair Climbing Comments See mobility for details. PT-Balance Assessment Sitting Balance and Reactions Static Sitting Balance Ability Normal Dynamic Sitting Balance Ability Good Standing Balance and Reactions Static Standing Balance Ability Good Dynamic Standing Balance Ability Good Device Used FWW M5 PT-IP Objective Assessments Start: 12/12/21 12:28 Freq: NEEDED Status: Discharge Protocol: Document 12/12/21 10:35 AB (Rec: 12/12/21 12:[address] [email or web address]) Orientation Orientation/Cognition Level of Alertness Alert Orientation Name Language Function Ability No Deficits Noted Safety Awareness Understands Safety Issues Memory Description No Deficits Noted Gross Range of Motion Lower Extremity ROM Assessment Within Functional Limits Strength Lower Extremity Strength Assessment Bilaterally Impaired Hip R: 4-/5 L: 3+/5 Knee R: 3+/5 L 4-/5 Sensation Assessment Sensation Gross Sensation Right LE Impaired,Left LE Impaired Comments Sensation Comments numbness on B feet Muscle Tone Muscle Tone WNL Yes M6 PT-IP Treatment Start: 12/12/21 12:28 Freq: NEEDED Status: Discharge Protocol: Document 12/13/21 09:39 SP (Rec: 12/13/21 17:04 SP [id number]) Physical Therapy Treatment Education Education Provided Precautions,Weight Bearing Status,Safety Other Treatments Other Treatment Performed Instructed supine: TA gentle engagement, TA heel slide, TA gentle AROM knee fall out painfree range x5 reps each, no adverse affects. Instructed gentle TA engagement during mobility for spinal staabilization with good demonstration. M7 PT-IP Assessment and Plan Start: 12/12/21 12:28 Freq: NEEDED Status: Discharge Protocol: Document 12/13/21 09:39 SP (Rec: 12/13/21 17:04 SP [id number]) PT Summary Assessment and Plan Potential Rehabilitation Potential Fair Status of Condition at Evaluation Evolving Summary Impairments Pain,ROM,Strength,Balance, Coordination,Sensation,Tone, Cognition,Bed Mobility, Transfers,Gait,Activity Tolerance Progress Towards Goals Progressing Toward Goals,Slow Progress due to Activity Tolerance Assessment Summary Pt SBA to CGA for mobility. Good adherence to spinal precautions. Able to ambulate ~60 ft slowly w/ FWW. She will need to complete 5 steps w/ caregiver training prior to d/ c. but anticipate pt to d/c home. Caregiver training scheduled w/ pts for 9 :30 AM tomorrow 12/13. Goals Bed Mobility Goal Standby Assistance Transfer Goal Standby Assistance,Front Wheeled Walker Gait Goal Standby Assistance,Front Wheel Walker Gait Distance 150 Other Goals up/down 5 steps 1 rail SBA Days to Meet Goals 5 Frequency of Treatment Frequency Of Treatment Twice a Day Treatment Plan Physical Therapy Treatment Plan Bed Mobility Training,Transfer Training,Gait Training, Therapeutic Exercise,Balance Retraining,Post Op Education, Discharge Planning,Hot or Cold Pack,Neuromuscular Re-ed, Coordination Retraining,Manual Therapy Other Recommendations and Next Treatment Further distance gait w/ FWW Focus acquired, walking in home for strengthening. HEP instructed. Precautions Lumbar Precautions Log Roll,No Twisting,Limit Bending,Lifting Restriction of 10 lbs,Gait Belt above Incisional Area Recommendations To Nursing Amount of Assist Needed Standby Assistance,1 Person Assist Discharge Recommendations PT Discharge Recommendations Home with 20/05 Assist Available,Home Health Equipment Needed for Home Before FWW was acquired via Discharge Transportation Needs at Discharge Private Vehicle
[2021-12-13] MEDS: ACETAMINOPHEN 325 MG TABLET 650 MG PO (10:38)
--- NOTE | 2021-12-13 10:47 | OT.IP.TRT ---
Current Diagnoses Spondylolisthesis, lumbar region (12/12/21) Spinal stenosis, lumbar region with neurogenic claudication (12/12/21) Surgery Performed Operation Date: 12/11/21 14:15 Actual Procedures p L3-4 TLIF - Jacob Montiel MD Occupational Therapy Treatment Note M2 OT-IP Current Condition Start: 12/12/21 11:52 Freq: Status: Active Protocol: Document 12/12/21 09:30 [facility] (Rec: 12/12/21 12:09 [facility] [id number]) Occupational Therapy Current Condition Current Condition Evaluation Date 12/12/21 Treatment Diagnosis S/p L3-4 TLIF Diagnosis Onset Date 12/11/21 Post Operative Precautions Lumbar Precautions Log Roll,No Twisting,Limit Bending,Lifting Restriction of 10 lbs,Gait Belt above Incisional Area M3 OT- IP Subjective and Pain Start: 12/12/21 11:52 Freq: Status: Active Protocol: Document 12/13/21 10:27 [facility] (Rec: 12/13/21 11:35 [facility] [id number]) OT- Subjective Occupational Therapy Visit Type Type Treatment Note Visit Start Time 10:27 Visit Stop Time 10:47 Total Visit Minutes 20 Occupational Therapy Visit Comments Patient Comments Pt's in the room and pt not wanting to shower at this time. Patient/Caregiver Goals TO go home. OT Pain Assessment Pain When Pain Assessed At Rest Pain Present Pain Present Denied Pain M4 OT- IP ADL's Start: 12/12/21 11:52 Freq: Status: Active Protocol: Document 12/13/21 10:27 [facility] (Rec: 12/13/21 11:35 [facility] [id number]) OT [facility] General Evaluation Self-Feeding Ability Independent OT ADL-Oral Care Comments Oral Care Comments Able to educated pt best to spit into a cup or hinge at her hips to spit into the sink during oral care needs. OT ADL-Dressing Comments OT Dressing Comments Pt states that her will just assist with her needs. OT ADL-Toileting Comments OT Toileting Comments Pt states had a small bowel movement but was not able to reach very well to be able to follow her back precautions. Suggested getting a bidet, toilet paper aid, or wipe from the back. Pt states that her will assist if needed. OT ADL-Bathing Comments OT Bathing Comments Pt not wanting to shower here in the hospital and states simran just sponge off while sitting on the edge of the tub. Recommended sitting on the edge of the tub would be a high fall risk and better off getting a shower chair to sit on in the walk in shower or tub/shower or sit on the toilet. Pt would also benefit from installation of grab bars for the shower or tub /shower. Pt states feels that it will be safer for her to just sponge off at home for now. M5 OT- IP IADL's Start: 12/12/21 11:52 Freq: Status: Active Protocol: Document 12/12/21 09:30 [facility] (Rec: 12/12/21 12:09 [facility] [id number]) OT-Instrumental Activities of Daily Living Medication Management Medication Management Comments Pt's states will be home to assist with all pt's needs at this time. Money Management Money Management Comments Pt's states will be home to assist with all pt's needs at this time. Meal Preparation Meal Preparation Caregiver Provides Assist Milling Machine Operator Milling Machine Operator Caregiver Provides Assist M6 OT- IP Functional Cognition Start: 12/12/21 11:52 Freq: Status: Active Protocol: Document 12/13/21 10:27 [facility] (Rec: 12/13/21 11:35 [facility] [id number]) Cognitive Factors Limiting Selfcare Function Cognitive Ability Level of Alertness Alert,Confusional State Safety Awareness Underestimates Need for Assistance Cognitive Comments Cognitive Assessment Comments Pt a bit impulsive and insistent on her care. OT- Balance Assessment Sitting Balance and Reactions Static Sitting Balance Ability Good Dynamic Sitting Balance Ability Fair Standing Balance and Reactions Static Standing Balance Ability Fair M8 OT- IP Objective Assessments Start: 12/12/21 11:52 Freq: Status: Active Protocol: Document 12/12/21 09:30 [facility] (Rec: 12/12/21 12:09 [facility] [id number]) OT-Muscle Tone Assessment Muscle Tone WNL Yes M9 OT- IP Assessment and Plan Start: 12/12/21 11:52 Freq: Status: Active Protocol: Document 12/13/21 10:27 [facility] (Rec: 12/13/21 11:35 [facility] [id number]) OT Summary Assessment and Plan Potential Rehabilitation Potential Good Analytic Complexity at Evaluation Low Summary OT Impairments Pain,Functional Cognition, Functional Mobility,Grooming, Dressing,Toileting,Bathing, Toilet Transfers,Shower Transfers Progress Towards Goals Progressing Toward Goals Assessment Summary Pt's present for caregiver training and pt not wanting to shower at this time and pt's able to ask questions for OT needs. Best for pt to get a shower chair for tub /shower and grab bars but pt insistent that she will just sponge off for now. Pt not interested in any LB dressing equipment and states her will just assist with all her needs. Pt to go home with 24/7 assist from . Goals Grooming Goal Independent Dressing Goal Independent Toileting Goal Independent Bathing Goal Independent Toilet Transfer Goal Independent Shower Transfer Goal Independent Patient/Caregiver Education Goal Caregiver Independent Assisting Patient Days to Meet Goals 5 Frequency of Treatment Frequency Of Treatment Once a Day Treatment Plan OT Treatment Plan ADL Training,Functional Cognition Training,Functional Mobility,Patient/Family Education,Discharge Planning Discharge Recommendations OT Discharge Recommendations Home with 24/7 Assist Available Home Equipment Needs FWW, shower chair/tubbench Transportation Needs at Discharge Private Vehicle
--- NOTE | 2021-12-13 11:49 | PC.NURSE ---
Pt is A&OX3, c/o pain to back and down to legs excruciating. She appears to have pain well controlled after PRN medications given this a.m. although she reports dilaudid was the only prn medication that helped alleviate her pain. VSS, afebrile on RA. She tolerates breakfast and ambulating around the room well.Ortho PA at bedside this a.m. addressing all of her concerns and clearing her for discharge home. RN reviewed medications and discharge instructions, site care, s/sx of infection and activity. She verbalizes understanding of instructions as well as her follow up appointment. FWW prescription sent to [facility] as well. Dressing to back with scant old dried blood changed. OT reviewing shower etc with her and at bedside. She is escorted to private vehicle via w//chair with her for discharge home today at approximately 1130 a.m. with all of her belongings.
--- NOTE | 2021-12-13 15:51 | CM.DPC ---
DCP Discharge Home Per Ortho PA, managed pain control better and pt medically stable to d/c home today. OT met with pt and spouse and completed CG training along with PT and helped with shower and precautions. OT updated pt and spouse that HH cannot service their home area. Per RN, d/c instructions given and taken out to spouse's POV shortly before lunch and no concerns at this time. Patient discharged home via spouse POV and outpt f/u with Ortho in a couple weeks to determine when to start outpt PT. ELENO Robledo
== END 2021-12-13 11:35 | disposition home or self-care (01) ==
LOC: OR 12-13 08:27 → AC 12-13 08:27
PROVIDERS: Admitting Provider Orthopaedic Surgery Orthopaedic Surgery of the Spine; PCP Student in an Organized Health Care Education/Training Program; Referring Provider Physical Medicine & Rehabilitation; Visit Provider Orthopaedic Surgery Orthopaedic Surgery of the Spine
PROC: (CPT 22633; principal; 2021-12-11 14:15)
DX: M48.062 Spinal stenosis, lumbar region with neurogenic claudication (principal); M43.16 Spondylolisthesis, lumbar region
CPT/HCPCS: 22633; 22853; 20939; 63052; 72100; 76000; 82962; 97116; 97162; 97165; 97530; 97535; G0378; C1713; C9290; J0131; J0171; J0330; J0690; J1100; J1170; J2405; J2704; J3010

== ENCOUNTER → 2022-04-05 07:49 | Outpatient (CLI) | payer OTHER, SELFPAY ==
[2021-12-11 12:47] VITALS: BMI 36.5
--- NOTE | 2022-04-05 07:51 | DI.MG.S_ITS ---
BILATERAL DIGITAL SCREENING MAMMOGRAM 3D/2D WITH CAD: 04/05/2022 CLINICAL: Routine screening. Family history of breast cancer. Comparison is made to exams dated: 10/07/2020 mammogram - [facility] and 12/21/2015 mammogram - [facility]. There are scattered fibroglandular elements in both breasts. Current study was also evaluated with a Computer Aided Detection (CAD) system. No significant masses, calcifications, or other findings are seen in either breast. There has been no significant interval change. IMPRESSION: NEGATIVE There is no mammographic evidence of malignancy. A 1 year screening mammogram is recommended. This exam was interpreted at Station ID: [id number]. NOTE: For mammograms, a report in lay terms will be sent to the patient. Approximately 15% of breast malignancies will not be visualized mammographically. In the management of a palpable breast mass, a negative mammogram must not discourage biopsy of a clinically suspicious lesion. Electronically Signed By: Durga kaiser/shashi:04/05/2022 10:19:44 letter sent: Normal Exam ACR BI-RADS Category 1: Negative [id number]
== END ==
PROVIDERS: PCP Student in an Organized Health Care Education/Training Program; Referring Provider Student in an Organized Health Care Education/Training Program; Visit Provider Student in an Organized Health Care Education/Training Program
DX: Z12.31 Encounter for screening mammogram for malignant neoplasm of breast (principal); Z80.3 Family history of malignant neoplasm of breast
CPT/HCPCS: 77063; 77067

== ENCOUNTER → 2022-08-01 16:17 | Outpatient (CLI) | payer OTHER, SELFPAY ==
[2021-12-11 12:47] VITALS: BMI 36.5
--- NOTE | 2022-08-01 16:19 | DI.RAD.S_ITS ---
PROCEDURE: XR THORACIC SPINE 3V INDICATIONS: Thoracic radiculopathy TECHNIQUE: 3 views of the thoracic spine were acquired. COMPARISON: None. FINDINGS: Bones: No acute fractures or dislocations. No suspicious bony lesions. 12 pairs of ribs are noted, and appear intact where visualized. Postsurgical changes are partially imaged in the lumbar spine. Soft tissues: No paravertebral stripe thickening. A calcified granuloma is seen in the left lower lobe. IMPRESSION: No acute osseous abnormality. If the symptoms persist, consider cross sectional imaging such as MRI or CT for further assessment. Dictated by: Que Ames M.D. on 08/02/2022 at 12:45 Approved by: Que Amse M.D. on 08/02/2022 at 12:46
[2022-08-01 17:06] LABS: Add Manual Diff / Slide Review NO; Basophils Absolute Auto 0 /uL (0-100); Basophils Percent Auto 0.7 % (0-2); Eosinophils Absolute Auto 100 /uL (0-450); Eosinophils Percent Auto 1.2 % (2-4); Hematocrit 41.7 % (36-46); Hemoglobin 14.2 g/dL (12.0-16.0); Lymphocytes Absolute Auto 1900 /uL (1100-4500); Lymphocytes Percent Auto 30.7 % (25-40); Mean Corpuscular Hemoglobin 32.4 PG (26-34); Mean Corpuscular Volume 95.4 fL (80-100); Monocytes Absolute Auto 400 /uL (0-900); Monocytes Percent Auto 6.1 % (3-14); Neutrophils Absolute Auto 3900 /uL (1500-7000); Neutrophils Percent Auto 61.3 % (50-75); Platelet Count 180 X10^3/uL (150-400); Red Blood Cell Count 4.37 X10^6/uL (4.0-5.2); White Blood Cell Count 6.3 X10^3/uL (4.5-11.0)
[2022-08-01 17:15] LABS: Alanine Aminotransferase 49 IU/L (<35); Albumin Globulin Ratio 1.3 (1.0-2.8); Alkaline Phosphatase 79 U/L (38-126); Aspartate Aminotransferase 32 IU/L (14-36); BUN Creatinine Ratio 22.5 (6-22); Bilirubin Total 0.2 mg/dL (0.2-1.3); Blood Urea Nitrogen 16 mg/dL (7-17); Calcium 8.9 mg/dL (8.4-10.2); Carbon Dioxide 27 mmol/L (22-32); Chloride 106 mmol/L (98-107); Estimated Glomerular Filt Rate > 60 mL/min (>60); Glucose 132 mg/dL (80-110); HEMOLYSIS < 15 (0-50); Lipase 121 U/L (23-300); Potassium 3.8 mmol/L (3.4-5.1); Sodium 143 mmol/L (137-145)
== END ==
PROVIDERS: PCP Student in an Organized Health Care Education/Training Program; Referring Provider Student in an Organized Health Care Education/Training Program; Visit Provider Student in an Organized Health Care Education/Training Program
DX: R10.10 Upper abdominal pain, unspecified (principal)
CPT/HCPCS: 36415; 72072; 80053; 83690; 85025

== ENCOUNTER → 2022-08-06 10:37 | Outpatient (CLI) | payer OTHER, SELFPAY ==
[2021-12-11 12:47] VITALS: BMI 36.5
== END ==
PROVIDERS: PCP Student in an Organized Health Care Education/Training Program; Visit Provider Registered Nurse
DX: J02.9 Acute pharyngitis, unspecified (principal)
CPT/HCPCS: 87070